=== PATIENT | female | born 1980 | race African-American/Black ===

== ENCOUNTER 2016-11-22 12:27 | Emergency (ER) | payer MEDICAID ==
[~2016-11-22] VITALS: Ht 160 cm; Wt 93.6 kg
[~2016-11-22 12:27] MED LIST: FLONASE NASAL S16 GM NS; PRENTAL 1 PLUS1 TAB PO; ZITHROMAX Z PA250 MG PO
[2016-11-22 12:29] VITALS: BP 160/96; TEMP 98.9
[2016-11-22 14:40] VITALS: PULSE 83
== END 2016-11-22 14:41 | disposition home or self-care (01) ==
LOC: COL.ER 12:27
DX: G44.209 Tension-type headache, unspecified, not intractable (principal); F17.210 Nicotine dependence, cigarettes, uncomplicated
CPT/HCPCS: J1200; J1885; J7030

== ENCOUNTER 2022-06-12 15:14 | Emergency (ER) | payer SELFPAY ==
[~2022-06-12] VITALS: Ht 162.6 cm; Wt 91.4 kg
[~2022-06-12 15:14] MED LIST changes: +MACROBID 1100 MG/CAP PO
[2022-06-12 15:27] VITALS: TEMP 98.5
[2022-06-12] MEDS ORDERED: AMOXICILLIN 8751 TAB PO (16:14)
[2022-06-12] MEDS ORDERED: IBU800 M1 PO (16:14)
[2022-06-12 16:35] VITALS: BP 159/95; PULSE 82
== END 2022-06-12 16:36 | disposition home or self-care (01) ==
LOC: COL.ER 15:14
DX: K04.7 Periapical abscess without sinus (principal); F17.200 Nicotine dependence, unspecified, uncomplicated; Z28.310 Unvaccinated for COVID-19

== ENCOUNTER 2023-11-12 14:56 | Emergency (ER) | payer SELFPAY ==
[~2023-11-12] VITALS: Ht 160 cm; Wt 90.9 kg
[~2023-11-12 14:56] MED LIST changes: +AMOXICILLIN 8751 TAB PO; +IBU800 M1 PO
[2023-11-12 15:05] VITALS: BP 181/116; TEMP 98.1
[2023-11-12] MEDS ORDERED: CEPHALEXIN500 M1 PO (16:01)
[2023-11-12] MEDS ORDERED: PREDNISONE20 MG PO (16:01)
[2023-11-12] MEDS ORDERED: VALISONE OI 15GM TP (16:03)
[2023-11-12 16:15] VITALS: PULSE 96
== END 2023-11-12 16:19 | disposition home or self-care (01) ==
LOC: COL.ER 14:56
DX: L30.1 Dyshidrosis [pompholyx] (principal)

== ENCOUNTER → 2024-02-26 | Outpatient (CLI) | payer OTHER ==
[~2024-02-26] MED LIST changes: +CEPHALEXIN500 M1 PO; +PREDNISONE20 MG PO; +VALISONE OI 15GM TP
== END ==
LOC: MC.RAD 11:35
DX: Z12.31 Encounter for screening mammogram for malignant neoplasm of breast (principal)